=== PATIENT | female | born 2000 ===

== ENCOUNTER 2023-04-17 19:19 | Emergency (ER) | payer SELFPAY ==
--- NOTE | 2023-04-17 20:11 | EDPHYS ---
Physician Documentation [facility] Name: Marta Roca Age: 22 yrs Sex: Female : 2000 Arrival Date: 04/17/2023 Time: 19:19 Bed IW5 Private MD: ED Physician Tushar Small HPI: 04/17 21:41 This 22 yrs old Female presents to ER via Ambulatory with complaints of Allergic rt Reaction. 21:41 Patient presents to the ED with about 24 hours of hives. The patient states that she rt had orange chicken yesterday, developed an itching rash to both of her arms as well as her legs. Denies any difficulty breathing, swallowing, tongue swelling. Denies other acute complaints at this time, symptoms are mild in severity, no other aggravating or alleviating factors.. Historical: - Allergies: 19:55 No Known Allergies; cm10 - Home Meds: 19:55 None [Active]; cm10 - PMHx: 19:55 None; cm10 - PSHx: 19:55 None; cm10 - Immunization history:: Adult Immunizations up to date. - Social history:: Smoking status: Patient denies any tobacco usage or history of. - Family history:: not pertinent. ROS: 21:41 Constitutional: Negative for fever, chills, and weight loss, ENT: Negative for injury, rt pain, and discharge, Cardiovascular: Negative for chest pain, palpitations, and edema, Respiratory: Negative for shortness of breath, cough, wheezing, and pleuritic chest pain, Abdomen/GI: Negative for abdominal pain, nausea, vomiting, diarrhea, and constipation, 21:41 Skin: Positive for Itching, hives, Exam: 21:41 Constitutional: This is a well developed, well nourished patient who is awake, alert, rt and in no acute distress. Head/Face: Normocephalic, atraumatic. ENT: Nares patent. No nasal discharge, no septal abnormalities noted. Tympanic membranes are normal and external auditory canals are clear. Oropharynx with no redness, swelling, or masses, exudates, or evidence of obstruction, uvula midline. Mucous membranes moist. Chest/axilla: Normal chest wall appearance and motion. Nontender with no deformity. No lesions are appreciated. Cardiovascular: Regular rate and rhythm with a normal S1 and S2. No gallops, murmurs, or rubs. Normal PMI, no JVD. No pulse deficits. Respiratory: Lungs have equal breath sounds bilaterally, clear to auscultation and percussion. No rales, rhonchi or wheezes noted. No increased work of breathing, no retractions or nasal flaring. Abdomen/GI: Soft, non-tender, with normal bowel sounds. No distension or tympany. No guarding or rebound. No evidence of tenderness throughout. 21:41 Skin: Urticarial rash noted to all 4 extremities.. Vital Signs: 19:53 BP 131 / 94; Pulse 83; Resp 18; Temp 98.2; Pulse Ox 100% on R/A; Weight 49.9 kg; Height cm10 5 ft. 3 in. ; Pain 0/10; 19:53 Body Mass Index 19.49 (49.90 kg, 160.02 cm) cm10 19:53 Pain Scale: Adult cm10 MDM: 20:03 Patient medically screened. rt 21:41 Differential diagnosis: Dermatitis, anaphylaxis. Data reviewed: vital signs, nurses rt notes. I considered the following discharge prescriptions or medication management in the emergency department No clinical evidence to suggest anaphylaxis, epinephrine not indicated.. Counseling: I had a detailed discussion with the patient and/or guardian regarding the historical points, exam findings, and any diagnostic results supporting the discharge/admit diagnosis, the need for outpatient follow up, to return to the emergency department if symptoms worsen or persist or if there are any questions or concerns that arise at home. Administered Medications: No medications were administered Disposition Summary: 04/17/23 20:10 Discharge Ordered Notes: Location: Home rt Problem: new rt Symptoms: are unchanged rt Condition: Stable rt Diagnosis - Urticaria, unspecified rt Followup: rt - With: Private Physician - When: 2 - 3 days - Reason: Discharge Instructions: - Discharge Summary Sheet rt - Hives rt Forms: - Medication Reconciliation Form rt - Thank You Letter rt - Antibiotic Education rt - Prescription Opioid Use rt - Patient Portal Instructions rt - Leadership Thank You Letter rt Signatures: Tushar Small MD MD rt Sherley Vu RN RN cm10
--- NOTE | 2023-04-17 20:11 | ER ---
Nurse's Notes [facility] Name: Marta Roca Age: 22 yrs Sex: Female : 2000 Arrival Date: 04/17/2023 Time: 19:19 Bed IW5 Private MD: Diagnosis: Urticaria, unspecified Presentation: 04/17 19:53 Chief complaint: Patient states: Hives to her arms, legs abdomen and head onset cm10 yesterday after eating orange chicken. Pt states taking benadryl with no relief. Pt denies any respiratory symptoms. Coronavirus screen: Vaccine status: Patient reports receiving the 2nd dose of the covid vaccine. Ebola Screen: Patient denies travel to an Ebola-affected area in the 21 days before illness onset. No symptoms or risks identified at this time. Onset: The symptoms/episode began/occurred yesterday. Anaphylaxis evaluation, the patient reports or I have noted the following symptoms which indicate a significant risk of anaphylaxis:. Initial Sepsis Screen: Does the patient meet any 2 criteria? No. Patient's initial sepsis screen is negative. Does the patient have a suspected source of infection? No. Patient's initial sepsis screen is negative. Risk Assessment: Do you want to hurt yourself or someone else? Patient reports no desire to harm self or others. Onset of symptoms was April 17, 2023. 19:53 Method Of Arrival: Ambulatory cm10 19:53 Acuity: IMAN 3 cm10 Triage Assessment: 19:57 General: Appears in no apparent distress. comfortable, Behavior is calm, cooperative. cm10 Pain: Denies pain. EENT: No deficits noted. Neuro: No deficits noted. Level of Consciousness is awake, alert, obeys commands, Oriented to person, place, time, situation. Respiratory: No deficits noted. Airway is patent Respiratory effort is even, unlabored, Respiratory pattern is regular, symmetrical. Derm: Rash noted that is itchy, urticaria. Historical: - Allergies: 19:55 No Known Allergies; cm10 - Home Meds: 19:55 None [Active]; cm10 - PMHx: 19:55 None; cm10 - PSHx: 19:55 None; cm10 - Immunization history:: Adult Immunizations up to date. - Social history:: Smoking status: Patient denies any tobacco usage or history of. - Family history:: not pertinent. Screenin:22 [facility] ED Fall Risk Assessment (Adult) History of falling in the last 3 months, cm10 including since admission No falls in past 3 months (0 pts) Confusion or Disorientation No (0 pts) Intoxicated or Sedated No (0 pts) Impaired Gait No (0 pts) Mobility Assist Device Used No (0 pt) Altered Elimination No (0 pt) Score/Fall Risk Level 0 - 2 = Low Risk Oriented to surroundings, Maintained a safe environment, Hourly rounding (assess needs \T\ fall precautionary measures) done. Abuse screen: Denies threats or abuse. Denies injuries from another. Nutritional screening: No deficits noted. Tuberculosis screening: No symptoms or risk factors identified. Vital Signs: 19:53 BP 131 / 94; Pulse 83; Resp 18; Temp 98.2; Pulse Ox 100% on R/A; Weight 49.9 kg; Height cm10 5 ft. 3 in. ; Pain 0/10; 19:53 Body Mass Index 19.49 (49.90 kg, 160.02 cm) cm10 19:53 Pain Scale: Adult cm10 ED Course: 19:26 Patient arrived in ED. jj6 19:27 Tushar Small MD is Attending Physician. rt 19:55 Triage completed. cm10 19:55 Arm band placed on Patient placed in waiting room. cm10 20:22 Patient has correct armband on for positive identification. Provided Education on: ER cm10 process and procedures. . 20:22 No provider procedures requiring assistance completed. Patient did not have IV access cm10 during this emergency room visit. Administered Medications: No medications were administered Medication: 20:22 VIS not applicable for this client. cm10 Outcome: 20:10 Discharge ordered by . rt 20:24 Discharged to home ambulatory, cm10 20:24 Condition: good 20:24 Discharge instructions given to patient, Instructed on discharge instructions, follow up and referral plans. medication usage, Demonstrated understanding of instructions, follow-up care, medications, Prescriptions given X 2, 20:24 Patient left the ED. cm10 Signatures: Jany Peraza [email or web address] Tushar Small MD MD rt Sherley Vu, RN RN cm10
[2023-04-17 23:35] VITALS: BP 131/94; TEMP 98.2; O2SAT 100
== END 2023-04-17 20:24 | disposition home or self-care (01) ==
LOC: ER 19:19
DX: L50.9 Urticaria, unspecified (principal)
CPT/HCPCS: 99283

== ENCOUNTER 2023-04-18 00:35 | Emergency (ER) | payer SELFPAY ==
[2023-04-18] MEDS ORDERED: NA CHLORIDE 0.9% 1,000 ML ONE (01:01)
[2023-04-18] MEDS ORDERED: DIPHENHYDRAMINE 50 MG/ML VIAL ONE (01:01)
[2023-04-18] MEDS ORDERED: FAMOTIDINE 20 MG/2 ML VIAL IV ONE (01:01)
[2023-04-18] MEDS ORDERED: METHYLPREDNISOLONE 125 MG INJ ONE (01:01)
[2023-04-18 01:05] LABS: Absolute Lymphocytes (CBC) 2.1 K/uL (0.7-4.9); Hematocrit 37.9 % (36.0-45.0); Lymphocytes % 14.8 % (15.3-44.8); MCV 80.6 fL (80-100); MPV 7.9 fL (7.6-11.3); Platelets 292 thou/uL (152-406)
[2023-04-18 01:08] LABS: Specific Gravity 1.025 (1.005-1.030)
[2023-04-18 01:10] LABS: Specific Gravity 1.025 (1.005-1.030); Urine Bacteria None Seen /HPF (<20); Urine Bilirubin NEGATIVE (Negative); Urine Blood Trace (Negative); Urine Clarity Clear (Clear); Urine Color Yellow (Yellow); Urine Glucose NEGATIVE (Negative); Urine Protein NEGATIVE (Negative); Urine RBC <5 /HPF (None Seen); Urine Urobilinogen 2+ (Normal); Urine WBC Clump Rare /HPF (None Seen)
[2023-04-18 01:20] LABS: Potassium 3.5 mEq/L (3.5-5.1)
--- NOTE | 2023-04-18 02:07 | ER ---
Nurse's Notes [facility] Name: Marta Roca Age: 22 yrs Sex: Female : 2000 Arrival Date: 04/18/2023 Time: 00:35 Bed 5 Private MD: Diagnosis: Allergy to other foods Presentation: 04/18 00:41 Chief complaint: Patient states: pt was seen here a few hours ago for hives and itching as6 and feels like the symptoms are worsening. Coronavirus screen: At this time, the client does not indicate any symptoms associated with coronavirus-19. Ebola Screen: No symptoms or risks identified at this time. Initial Sepsis Screen: Does the patient meet any 2 criteria? No. Patient's initial sepsis screen is negative. Does the patient have a suspected source of infection? No. Patient's initial sepsis screen is negative. Risk Assessment: Do you want to hurt yourself or someone else? Patient reports no desire to harm self or others. Onset of symptoms was April 18, 2023. 00:41 Method Of Arrival: Ambulatory as6 00:41 Acuity: IMAN 4 as6 01:37 Anaphylaxis evaluation, no signs or symptoms of anaphylaxis were noted. kd3 01:37 Onset: The symptoms/episode began/occurred gradually. 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 - Social history:: Smoking status: Patient denies any tobacco usage or history of. Screenin:48 [facility] ED Fall Risk Assessment (Adult) History of falling in the last 3 months, kd3 including since admission No falls in past 3 months (0 pts) Confusion or Disorientation No (0 pts) Intoxicated or Sedated No (0 pts) Impaired Gait No (0 pts) Mobility Assist Device Used No (0 pt) Altered Elimination No (0 pt) Score/Fall Risk Level 0 - 2 = Low Risk Maintained a safe environment. Abuse screen: Denies threats or abuse. Denies injuries from another. Nutritional screening: No deficits noted. Tuberculosis screening: No symptoms or risk factors identified. Assessment: 00:48 General: Appears uncomfortable, Behavior is calm, cooperative. Pain: Complains of pain kd3 in rash. Neuro: Level of Consciousness is awake, alert, obeys commands, Oriented to person, place, time, situation. Cardiovascular: Patient's skin is warm and dry. Respiratory: Airway is patent Trachea midline Respiratory effort is even, unlabored, Breath sounds are clear bilaterally. 01:45 Reassessment: Patient and/or family updated on plan of care and expected duration. Pain kd3 level reassessed. Patient is alert, oriented x 3, equal unlabored respirations, skin warm/dry/pink. Patient states feeling better. Patient states symptoms have improved. Vital Signs: 00:41 Temp 98.8(TE); Weight 49.9 kg (R); Height 5 ft. 3 in. (R); Pain 0/10; as6 00:48 BP 135 / 99; Pulse 92; Resp 23; Pulse Ox 100% on R/A; kd3 01:36 BP 116 / 75; Pulse 88; Resp 16; Pulse Ox 100% on R/A; kd3 01:56 BP 122 / 85; Pulse 80; Resp 16; Pulse Ox 100% on R/A; kd3 00:41 Body Mass Index 19.49 (49.90 kg, 160.02 cm) as6 00:41 Pain Scale: Adult as6 ED Course: 00:36 Patient arrived in ED. ag3 00:38 Terence Comer PA is PHCP. cp 00:38 Lalito Garcia MD is Attending Physician. cp 00:38 Cici Noble RN is Primary Nurse. kd3 00:43 Triage completed. as6 00:43 Arm band placed on. as6 00:47 No provider procedures requiring assistance completed. Inserted saline lock: 22 gauge kd3 in right antecubital area, using aseptic technique. Blood collected. 00:52 Assisted to bathroom. kd3 01:04 CBC with Diff Sent. kd3 01:04 Urinalysis W/Microscopic Sent. kd3 01:04 PREGU Sent. kd3 01:37 Patient has correct armband on for positive identification. Provided Education on: rash kd3 . 02:19 IV discontinued, intact, bleeding controlled, No redness/swelling at site. Pressure as6 dressing applied. Administered Medications: 01:03 Drug: Famotidine IVP 20 mg IVP once; dilute with 10 mL 0.9% NaCl; give over 2 minutes kd3 Route: IVP; Site: right antecubital; 02:18 Follow up: Response: No adverse reaction as6 01:03 Drug: diphenhydrAMINE IVP 12.5 mg IVP once Route: IVP; Site: right antecubital; kd3 02:19 Follow up: Response: No adverse reaction as6 01:04 Drug: NS 0.9% IV 1000 ml IV at 1 bolus Per protocol; 1000 mL bolus Route: IV; Rate: 1 kd3 bolus; Site: right antecubital; 02:18 Follow up: Response: No adverse reaction; IV Status: Completed infusion; IV Intake: as6 1000ml 01:04 Drug: MethylPrednisoLONE IVP 125 mg IVP once Route: IVP; Site: right antecubital; kd3 02:18 Follow up: Response: No adverse reaction as6 Medication: 01:37 VIS not applicable for this client. kd3 Intake: 02:18 IV: 1000ml; Total: 1000ml. as6 Outcome: 02:06 Discharge ordered by . cp 02:19 Discharged to home ambulatory, with significant other, as6 02:19 Condition: stable 02:19 Discharge instructions given to patient, Instructed on discharge instructions, follow up and referral plans. medication usage, Demonstrated understanding of instructions, follow-up care, medications, Prescriptions given X 2, 02:19 Patient left the ED. as6 Signatures: Terence Comer PA PA cp Gomez, Alice 3 Shaun Langley RN RN as6 Cici Noble RN RN kd3
--- NOTE | 2023-04-18 02:07 | EDPHYS ---
Physician Documentation [facility] Name: Marta Roca Age: 22 yrs Sex: Female : 2000 Arrival Date: 04/18/2023 Time: 00:35 Bed 5 Private MD: ED Physician Lalito Garcia HPI: 04/18 01:00 This 22 yrs old Female presents to ER via Ambulatory with complaints of Rash, Allergic cp Reaction, ITCHY THROAT. 01:00 The patient's rash thought to be caused by food. The rash is located on the body cp diffusely. The rash can be described as erythematous. Onset: The symptoms/episode began/occurred yesterday. Associated signs and symptoms: Pertinent positives: itching, Pertinent negatives: fever, swelling of lips, swelling of throat, swelling of tongue. Treatment given at home: Benadryl. 01:00 Patient reports rash started after eating orange chicken. Patient denies tightness cp and/or feeling of throat closing. 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 - Social history:: Smoking status: Patient denies any tobacco usage or history of. ROS: 01:00 Constitutional: Negative for body aches, chills, fever, poor PO intake, cp 01:00 Respiratory: Negative for cough, shortness of breath, wheezing, cp Exam: 01:08 Constitutional: The patient appears in no acute distress, alert, awake, non-toxic, well cp developed, well nourished, 01:08 Head/Face: Normocephalic, atraumatic. cp 01:08 Eyes: Periorbital structures: appear normal, Conjunctiva: normal, no exudate, no injection, Lids and lashes: appear normal, bilaterally, 01:08 ENT: External ear(s): are unremarkable, Nose: is normal, Mouth: Lips: moist, Oral mucosa: pink and intact, moist, Posterior pharynx: Airway: no evidence of obstruction, patent, swelling, is not appreciated, erythema, is not appreciated, 01:08 Cardiovascular: Rate: normal, Rhythm: regular, 01:08 Respiratory: the patient does not display signs of respiratory distress, Respirations: normal, no use of accessory muscles, no retractions, labored breathing, is not present, Breath sounds: are clear throughout, no decreased breath sounds, no stridor, no wheezing, 01:08 Abdomen/GI: Inspection: abdomen appears normal, Palpation: abdomen is soft and non-tender, in all quadrants, :08 Skin: rash a moderate rash is noted, consistent with hives, and is diffusely located, Vital Signs: 00:41 Temp 98.8(TE); Weight 49.9 kg (R); Height 5 ft. 3 in. (R); Pain 0/10; as6 00:48 BP 135 / 99; Pulse 92; Resp 23; Pulse Ox 100% on R/A; kd3 01:36 BP 116 / 75; Pulse 88; Resp 16; Pulse Ox 100% on R/A; kd3 01:56 BP 122 / 85; Pulse 80; Resp 16; Pulse Ox 100% on R/A; kd3 00:41 Body Mass Index 19.49 (49.90 kg, 160.02 cm) as6 00:41 Pain Scale: Adult as6 MDM: 00:38 Patient medically screened. cp 01:00 Differential diagnosis: allergic reaction, anaphylaxis. cp 02:05 Data reviewed: vital signs, nurses notes, lab test result(s). cp 02:05 I considered the following discharge prescriptions or medication management in the emergency department Medications were administered in the Emergency Department. See MAR. Counseling: I had a detailed discussion with the patient and/or guardian regarding the historical points, exam findings, and any diagnostic results supporting the discharge/admit diagnosis, to return to the emergency department if symptoms worsen or persist or if there are any questions or concerns that arise at home. Response to treatment: the patient's symptoms have markedly improved after treatment, and as a result, I will discharge patient. 04/18 00:47 Order name: BMP; Complete Time: 01:30 cp 04/18 00:47 Order name: CBC with Diff; Complete Time: :30 cp 04/18 01:30 Interpretation: Normal except: WBC 14.30; MCHC 39.3; RDW 18.1; STEFANY% 81.0; LYM% 14.8; cp MN% 3.1; NEUT A 11.5. 04/18 00:47 Order name: Urinalysis W/Microscopic; Complete Time: 01:30 cp 04/18 00:47 Order name: PREGU; Complete Time: 01:30 cp 04/18 00:47 Order name: IV; Complete Time: 00:49 cp Administered Medications: 01:03 Drug: Famotidine IVP 20 mg IVP once; dilute with 10 mL 0.9% NaCl; give over 2 minutes kd3 Route: IVP; Site: right antecubital; 02:18 Follow up: Response: No adverse reaction as6 01:03 Drug: diphenhydrAMINE IVP 12.5 mg IVP once Route: IVP; Site: right antecubital; kd3 02:19 Follow up: Response: No adverse reaction as6 01:04 Drug: NS 0.9% IV 1000 ml IV at 1 bolus Per protocol; 1000 mL bolus Route: IV; Rate: 1 kd3 bolus; Site: right antecubital; 02:18 Follow up: Response: No adverse reaction; IV Status: Completed infusion; IV Intake: as6 1000ml 01:04 Drug: MethylPrednisoLONE IVP 125 mg IVP once Route: IVP; Site: right antecubital; kd3 02:18 Follow up: Response: No adverse reaction as6 Disposition Summary: 04/18/23 02:06 Discharge Ordered Notes: Location: Home cp Problem: new cp Symptoms: have improved cp Condition: Stable cp Diagnosis - Allergy to other foods cp Followup: cp - With: Private Physician - When: 1 - 2 days - Reason: Worsening of condition Discharge Instructions: - Discharge Summary Sheet cp - Food Allergy cp - Hives cp Forms: - Medication Reconciliation Form cp - Thank You Letter cp - Antibiotic Education cp - Prescription Opioid Use cp - Patient Portal Instructions cp - Leadership Thank You Letter cp Prescriptions: - Pepcid 20 mg Oral Tablet - take 1 tablet ORAL route every 12 hours for 5 days; 10 tablet; Refills: 0, cp Product Selection Permitted - Prednisone 20 mg Oral Tablet - take 2 tablets ORAL route once daily for 5 days; 10 tablet; Refills: 0, Product cp Selection Permitted Signatures: Dispatcher Med[employer] EDTerence Correa PA PA cp Slawson, Ashby RN RN as6 Cici Noble, RN RN kd3
[2023-04-18 03:26] VITALS: O2SAT 100
[2023-04-18 03:29] VITALS: BP 122/85
[2023-04-18 03:35] VITALS: TEMP 99.1
== END 2023-04-18 02:19 | disposition home or self-care (01) ==
LOC: ER 00:35
DX: R21 Rash and other nonspecific skin eruption (principal); Z91.018 Allergy to other foods
CPT/HCPCS: 36415; 80048; 81001; 81025; 85025; 96361; 96374; 96375; 99284; J1200; J2930; J7030